=== PATIENT | born 1995 | race African-American/Black ===

== ENCOUNTER → 2020-12-09 12:22 | Outpatient (CLI) | payer BC, SELFPAY ==
[2020-12-09] MEDS: COVID-19 VACC #1, MRNA(MOD) 100 MCG/0.5 ML VIAL IM (12:31)
== END ==
PROVIDERS: Visit Provider Internal Medicine
DX: Z23 Encounter for immunization (principal)
CPT/HCPCS: 0011A; 91301

== ENCOUNTER → 2021-01-06 12:16 | Outpatient (CLI) | payer BC, SELFPAY ==
[2021-01-06] MEDS: COVID-19 VACC #2, MRNA(MOD) 100 MCG/0.5 ML VIAL IM (12:25)
== END ==
PROVIDERS: Visit Provider Internal Medicine
DX: Z23 Encounter for immunization (principal)
CPT/HCPCS: 0012A; 91301